=== PATIENT | female | born 1960 | race African-American/Black ===

== ENCOUNTER 2021-02-11 09:18 | Emergency (ER) | payer OTHER, BC ==
[~2021-02-11] VITALS: Ht 165.1 cm; Wt 88.0 kg
[2021-02-11 10:06] LABS: HEMATOCRIT. 43.5 % (36.0-48.0); HEMOGLOBIN. 14.4 g/dL (12.0-16.0); MEAN CORPUSCULAR HEMOGLOBIN 29.2 pg (28.0-32.0); MEAN CORPUSCULAR VOLUME 88.3 fL (81.0-99.0); MEAN PLATELET VOLUME 7.7 fl (7.4-10.4); PLATELET 282 x1000/uL (130-400); RED BLOOD CELL COUNT 4.93 mill/uL (4.2-5.4); RED CELL DISTRIBUTION WIDTH 13.6 % (11.6-14.6)
[2021-02-11 10:13] LABS: CHLORIDE 105 mEq/L (98-107)
[2021-02-11 10:48] LABS: PLATELET ESTIMATE NORMAL
[2021-02-11 10:51] VITALS: BP 142/69
== END 2021-02-11 11:21 | disposition home or self-care (01) ==
LOC: ER 09:18
DX: R00.2 Palpitations (principal); I10 Essential (primary) hypertension; E78.5 Hyperlipidemia, unspecified; Z88.1 Allergy status to other antibiotic agents
CPT/HCPCS: 36415; 71045; 80053; 83880; 84484; 85025; 93005; 99285

== ENCOUNTER 2022-09-01 14:47 | Emergency (ER) | payer OTHER ==
[~2022-09-01] VITALS: Ht 162.6 cm; Wt 99.0 kg
[2022-09-01] MEDS ORDERED: LOSARTAN (14:52)
[2022-09-01 14:54] VITALS: BP 152/48; PULSE 64; RESP 16; TEMP 98.3; O2SAT 98
== END 2022-09-01 16:07 | disposition left against medical advice (07) ==
LOC: ER 14:47
DX: Z53.21 Procedure and treatment not carried out due to patient leaving prior to being seen by health care provider (principal)
CPT/HCPCS: 99281